=== PATIENT | male | born 1975 | race Caucasian/White ===

== ENCOUNTER 2020-12-27 11:57 | Outpatient (CLI) | payer OTHER, SELFPAY ==
--- NOTE | ~2020-12-27 | XR_ITS ---
EXAMINATION: XR abdomen/kub 1V EXAM DATE: 12/27/2020 12:16 INDICATION: Bilateral kidney stones. TECHNIQUE: Frontal projection of the upper abdomen, frontal projection lower abdomen/pelvis for inter pretation. There is no prior study for comparison. FINDINGS: There are 2 right-sided kidney stones identified, largest measuring about 7 mm, the other a bout 3 mm. Stool in the rectal vault obscuring the UVJ regions. Moderate amount of colonic stool. No small bowel dilation. There are no osseous abnormalities identified. IMPRESSION: 1. Right nephrolithiasis. Reviewed, dictated and finalized at location B. IMPRESSION: 1. Right nephrolithiasis.
== END 2020-12-27 11:58 | disposition home or self-care (01) ==
LOC: ANHIMG 12:07
PROVIDERS: Visit Provider Nurse Practitioner Adult Health
DX: N20.0 Calculus of kidney (principal)
CPT/HCPCS: 74018

== ENCOUNTER 2021-01-12 08:14 | Outpatient (CLI) | payer OTHER, SELFPAY ==
[2021-01-12 08:46] LABS: INR 0.9; Prothrombin Time 12.5 Seconds (11.1-14.7)
[2021-01-12 08:47] LABS: Partial Thromboplastin Time 24.7 SECONDS (22.3-36.8)
== END 2021-01-12 08:15 | disposition home or self-care (01) ==
LOC: ANHSURGERY 08:18
PROVIDERS: Visit Provider Urology
DX: N20.0 Calculus of kidney (principal); Z01.818 Encounter for other preprocedural examination
CPT/HCPCS: 36415; 85610; 85730; 87077; 87086; 87088; 87186

== ENCOUNTER → 2021-01-16 01:18 | Outpatient (CLI) | payer OTHER, SELFPAY ==
[2021-01-17 19:27] LABS: SARS-CoV-2 RNA PCR Negative
== END ==
PROVIDERS: Visit Provider Urology
DX: Z01.812 Encounter for preprocedural laboratory examination (principal); Z20.822 Contact with and (suspected) exposure to COVID-19
CPT/HCPCS: C9803; U0003; U0005

== ENCOUNTER 2021-01-19 00:52 | Day surgery (SDC) | payer OTHER, SELFPAY ==
[2021-01-08 15:31] VITALS: BMI 30.1
--- NOTE | 2021-01-18 10:31 | P.PNAN_ITS ---
Anes - Initial Pre Proc Eval Procedure: Operation Date: 01/19/21 07:30 Proposed Procedures p Right Renal Extracorporeal Shock Wave Lithotripsy - Adi Davis MD Date/Time: 01/18/21 10:31 Surgeon: Adi Davis MD Pre Op Diagnosis: right renal stone Patient Data Age: 46 Gender: M Height: 1.78 m Weight: 95.25 kg Allergies Allergy/AdvReac Type Severity Reaction Status Date / Time No Known Allergies Allergy Verified 01/19/21 06:49 Home Medications Medication Instructions Recorded Confirmed Type ascorbic acid (vitamin C) 1 cap PO DAILY 01/08/21 01/19/21 History melatonin 1 cap PO HS 01/08/21 01/19/21 History vitamin E 1 cap PO DAILY 01/08/21 01/19/21 History Patient hx anesthesia problems: none Family hx anesthesia problems: none [facility] Surgical History Surgical History (Updated 01/18/21 @ 10:32 by Amadou Washburn DO) History of tonsillectomy Social History Social History Smoking status: Never smoker Living arrangements: alone Spiritual care concerns: No Anes - Eval Final PreProcedure Day of Procedure 01/18/21 10:31 Patient weight: obese Heart: regular rate and rhythm Lungs: clear to auscultation and normal air movement Airway: Mallampati scale class II Neurological: alert and oriented Last oral intake: >/= 8 hours ASA classification: II Emergent: no Anesthetic plan: proceed Anesthesia type and monitoring: general LMA and standard monitoring Informed Consent: The patient's anesthetic plan and its attendant risks and benefits were discussed with the patient/family/POA. Questions were solicited and answers provided to the satisfaction of the patient/family/POA.
[2021-01-19] VITALS (7 sets, daily range): BP systolic 114–137; BP diastolic 72–77; PULSE 68–88; RESP 13–20; TEMP 36.1–36.9; O2SAT 97–100
--- NOTE | ~2021-01-19 | XR_ITS ---
EXAMINATION: XR abdomen/kub 1V DATE: 01/19/2021 06:10 INDICATION: Right kidney stone. TECHNIQUE: A supine view of the abdomen on 2 radiographs was obtained. COMPARISON: Abdomen radiographs 12/27/2020 FINDINGS: There are no dilated loops of bowel. There are 8 mm and 4 mm stones in right kidney. There are two 5 mm calcifications in the pelvis. IMPRESSION: 1. Right kidney stones. 2. Calcifications in the pelvis that may be bladder stones or phleboliths. Reviewed, dictated and finalized at location A.
[2021-01-19] MEDS: LACTATED RINGERS 1,000 ML 30 ML IV CONT ×2 (06:30→08:12)
--- NOTE | 2021-01-19 07:19 | WPDHPUPDATE1 ---
History and Physical Update Update Date/Time: 01/19/21 07:20 History and Physical has been reviewed, including an updated exam of the patient. There are NO changes in the patient's condition. Risks, benefits, and alternatives have been discussed and questions answered. Patient agrees to proceed with procedure.
[2021-01-19] MEDS: ceFAZolin 2 GM/D5W 50 ML 2 GM/50 ML BAG IVPB (07:28)
--- NOTE | 2021-01-19 08:02 | P.OP_ITS ---
Procedure Note - Detailed Date of procedure: 01/19/21 Pre-op diagnosis: right renal stone Post-op diagnosis: same Procedure performed: ESWL of 8 mm right renal calculus Description of procedure: Patient is taken the operative suite correctly i dentified. Once anesthesia was obtained the larger stone measuring approximately 8 mm was localized in both planes. Two thousand five hundred shocks given to the stone. Patient tolerated procedure well without any complications and was taken recovery stable condition. We did not give any shocks to lower pole stone is larger 1 took all of the 2500 shocks. Anesthesia: GLMA Surgeon: Adi Davis MD Drains: No Packing: No Pathology: none sent Complications: No immediate complications Condition: stable Disposition: PACU
--- NOTE | 2021-01-19 08:24 | SUR.PHASEI ---
0815- right flank dry, minimum redness. Pt sleeping,
== END 2021-01-19 09:35 | disposition home or self-care (01) ==
PROVIDERS: Visit Provider Urology
PROC: (CPT 50590; principal; 2021-01-19 07:30)
DX: N20.0 Calculus of kidney (principal); E66.9 Obesity, unspecified; Z68.31 Body mass index [BMI] 31.0-31.9, adult
CPT/HCPCS: 50590; 74018; J0131; J0690; J1100; J2250; J2405; J2704; J3010; J7120

== ENCOUNTER 2021-02-06 12:52 | Outpatient (CLI) | payer OTHER, SELFPAY ==
--- NOTE | ~2021-02-06 | XR_ITS ---
XR abdomen/kub 1V DATE: 02/06/2021 13:06 INDICATION: Bilateral kidney stones TECHNIQUE: AP projection, 2 views COMPARISON: 01/19/2021 KUB 12/27/2020 FINDINGS: 2 or more small calcifications overlie the lower pole right kidney consistent with right ne phrolithiasis. A larger calcification overlying the mid right kidney on 12/27/2020 and 01/19/2021 is not evident on the current radiograph. No calcifications overlying left kidney or the course of either ureter is evident. Possible calcified bladder stones. The psoas shadows are intact. No visceromegaly is evident. No bowel obstruction is evident. There is a prominent amount fecal material in the right colon. Included skeletal structures are unremarkable. IMPRESSION: Right nephrolithiasis; apparent improvement since 01/19/2021 Possible bladder calcified stones More optimal evaluation for urinary tract stones could be obtained by noncontrast CT abdomen pelvis e xamination. Reviewed, dictated and finalized at [facility]. Reviewed, dictated and finalized at location A. IMPRESSION: Right nephrolithiasis; apparent improvement since 01/19/2021 Possible bladder calcified stones More optimal evaluation for urinary tract stones could be obtained by noncontra st CT abdomen pelvis examination.
== END 2021-02-06 12:53 | disposition home or self-care (01) ==
LOC: ANHIMG 12:55
PROVIDERS: Visit Provider Urology
DX: N20.0 Calculus of kidney (principal)
CPT/HCPCS: 74018